=== PATIENT | female | born 1955 | race Caucasian/White ===

== ENCOUNTER 2020-05-11 18:57 | Emergency (ER) | payer OTHER ==
[~2020-05-11] VITALS: Ht 167.6 cm; Wt 80.8 kg
[2020-05-11 19:20] VITALS: BP 172/69
--- NOTE | 2020-05-11 19:22 | PHYS DOC ---
Past History Past Medical History: Arthritis Smoking: Cigarettes General Adult EDM: Chief Complaint: KNEE INJURY HPI: HPI: ".. I think I hurt my Rt. knee at work about 2 or 3 weeks. ago.. It is still giving me a lot of pain..;I seen the [facility] rachael doctor.. and he said I needed a US... Maybe .. I got a blood clott or something.. I work at at [employer].." Patient is a 64 year old female who presents with above hx and complaints of Rt knee injury . Patient feels she injured her right knee 2 to 3 weeks ago while working at [employer]. Patient has followed with the [facility] doctor who felt that she needed a ultrasound to evaluate for DVT. Patient does smoke. Patient has no previous history of DVT or pulmonary embolism or coagulopathy. There is no first-degree family members that have coagulopathy. No recent travel outside [facility]. Patient is in contact with sick patients at [employer]. Patient follows with Dr. Lopez as a primary physician. Patient does have a history of arthritic changes. Review of Systems: Review of Systems: Constitutional: Denies fever or chills Eyes: Denies change in visual acuity HENT: Denies nasal congestion or sore throat Respiratory: Denies cough or shortness of breath Cardiovascular: Denies chest pain or edema GI: Denies abdominal pain, nausea, vomiting, bloody stools or diarrhea : Denies dysuria Musculoskeletal: Complains of right knee pain Integument: Denies rash Neurologic: Denies headache, focal weakness or sensory changes Endocrine: Denies polyuria or polydipsia Lymphatic: Denies swollen glands Psychiatric: Denies depression or anxiety Heart Score: Risk Factors: Risk Factors: DM, Current or recent (<one month) smoker, HTN, HLP, family history of CAD, obesity. Risk Scores: Score 0 - 3: 2.5% MACE over next 6 weeks - Discharge Home Score 4 - 6: 20.3% MACE over next 6 weeks - Admit for Clinical Observation Score 7 - 10: 72.7% MACE over next 6 weeks - Early Invasive Strategies Family History: Family History: Noncontributory to presentation Current Medications: Current Meds: See nursing for home meds Allergies: Allergies: No known drug allergies Physical Exam: PE: Constitutional: , no acute distress, non-toxic appearance. [] HENT: Normocephalic, atraumatic, bilateral external ears normal, oropharynx moist, no oral exudates, nose normal. [] Eyes: PERRLA, EOMI, conjunctiva normal, no discharge. [] Neck: Normal range of motion, no tenderness, supple, no stridor. [] Cardiovascular:Heart rate regular rhythm, no murmur [] Lungs & Thorax: Bilateral breath sounds equal at apex on auscultation [] Abdomen: Bowel sounds normal, soft, no tenderness, no masses, no pulsatile masses. Scar Skin: Warm, dry, no erythema, no rash. [] Back: No tenderness, no CVA tenderness. [] Extremities: Right knee tenderness, some crepitation with range of motion right knee, can do straight leg lift. Anterior posterior ligaments grossly stable. Some collateral ligament tenderness. Patient does have mild popliteal tenderness on the right. No cyanosis, no clubbing, ROM intact, no edema. [] There is no cording appreciated. Neurologic: Alert and oriented X 3, normal motor function, normal sensory functi on, no focal deficits noted. [] Psychologic: Affect anxious, judgement normal, mood normal. [] EKG: EKG: [] Radiology/Procedures: Radiology/Procedures: [][place] [id number] IMAGING REPORT Signed PATIENT: GREGG JIMENEZ ACCOUNT: [id number] : 1955 LOCATION: ER AGE: 64 SEX: F EXAM STATUS: REG ER ORD. PHYSICIAN: RUSTY BOONE MD REASON: injury, CHRONIC MOTION, PAIN WORSE X A FEW DAYS PROCEDURE: KNEE RIGHT 4V Study: CR KNEE RIGHT 4V Indication: Worsening pain. Comparison: None. Findings: No acute fracture. Alignment is anatomic. Tricompartmental osteoarthrosis with a predilection for the medial compartment where there is mild joint space narrowing. Scattered small osteophytes. Probable small effusion seen at the suprapatellar recess. Impression: 1. No acute osseous abnormality. 2. Relatively mild arthrosis with a predilection for the medial femorotibial compartment. 3. Suspected small knee joint effusion. Electronically signed by: SHAYLA MIR MD (05/11/2020 8:51 PM) [id number] DICTATED AND SIGNED BY: SHAYLA MIR MD DATE: 05/11/202050 CC: RUSTY BOONE MD; AUTUMN LOPEZ MD ~ Course & Med Decision Making: Course & Med Decision Making Pertinent Labs and Imaging studies reviewed. (See chart for details) Patient use Meño wrap. Take Tylenol and ibuprofen for pain. Follow-up workman comp. Consider follow-up with primary care. Consider follow-up orthopedics if persistent pain. May take Vicoprofen up to 4 times a day for marked pain. Patient encouraged to reduce or stop smoking. With a negative d-dimer patient relatively low risk for significant DVT. Exam is more consistent with popliteal fossa bursitis and degenerative arthritis. Impression: 1. Right knee injury/pain 2. Degenerative joint changes 3. Right popliteal bursa/bursitis 4. Tobacco use [] Dragon Disclaimer: Dragon Disclaimer: This electronic medical record was generated, in whole or in part, using a voice recognition dictation system. Departure Departure: Disposition: 01 HOME/RESIDENCE PRIOR TO ADM Condition: STABLE Referrals: AUTUMN LOPEZ MD (PCP) Scripts Hydrocodone/Ibuprofen (HYDROCODONE-IBUPROFEN 7.5-200 ) 1 Each Tablet 1 TAB PO PRN Q6HRS PRN for PAIN, #30 TAB 0 Refills Prov: RUSTY BOONE MD 05/11/20 Justification of Admission: Justification of Admission: Justification of Admission Dx: N/A Dragon Disclaimer This chart was dictated in whole or in part using Voice Recognition software in a busy, high-work load, and often noisy Emergency Department environment. It may contain unintended and wholly unrecognized errors or omissions. RUSTY BOONE MD May 11, 2020 19:22
[2020-05-11 20:51] LABS: BASO # 0.1 x10^3/uL (0.0-0.2); BASO % 1 % (0-3); EOS # 0.2 x10^3/uL (0.0-0.7); EOS % 3 % (0-3); HEMATOCRIT 44.7 % (36.0-47.0); HEMOGLOBIN 14.9 g/dL (12.0-15.5); LYMPH # 2.4 x10^3/uL (1.0-4.8); LYMPH % 43 % (24-48); MEAN CORPUSCULAR HEMOGLOBIN 31 pg (25-35); MEAN CORPUSCULAR HGB CONC 33 g/dL (31-37); MEAN CORPUSCULAR VOLUME 91 fL (79-100); MONO # 0.6 x10^3/uL (0.0-1.1); MONO % 10 % (0-9); NEUT # 2.4 x10^3uL (1.8-7.7); NEUT % 43 % (31-73); PLATELET COUNT 128 x10^3/uL (140-400); RED BLOOD COUNT 4.91 x10^6/uL (3.50-5.40); RED CELL DISTRIBUTION WIDTH 13.2 % (11.5-14.5); WHITE BLOOD COUNT 5.7 x10^3/uL (4.0-11.0)
[2020-05-11 20:54] LABS: CALCIUM 9.2 mg/dL (8.5-10.1); CREATININE 0.8 mg/dL (0.6-1.0); GFR 72.4; POTASSIUM 3.8 mmol/L (3.5-5.1)
--- NOTE | 2020-05-11 20:54 | RAD ---
Study: CR KNEE RIGHT 4V Indication: Worsening pain. Comparison: None. Findings: No acute fracture. Alignment is anatomic. Tricompartmental osteoarthrosis with a predilection for the medial compartment where there is mild joint space narrowing. Scattered small osteophytes. Probable small effusion seen at the suprapatellar recess. Impression: 1. No acute osseous abnormality. 2. Relatively mild arthrosis with a predilection for the medial femorotibial compartment. 3. Suspected small knee joint effusion. Electronically signed by: SHAYLA MIR MD (05/11/2020 8:51 PM) [id number]
[2020-05-11] MEDS ORDERED: HYDR-1179 PO (21:27)
== END 2020-05-11 21:35 | disposition home or self-care (01) ==
LOC: ER 18:57
DX: M25.561 Pain in right knee (principal); M23.8X1 Other internal derangements of right knee; M70.51 Other bursitis of knee, right knee; M19.90 Unspecified osteoarthritis, unspecified site; F17.210 Nicotine dependence, cigarettes, uncomplicated; Y93.89 Activity, other specified
CPT/HCPCS: 36415; 73564; 80048; 85025; 85379; 85610; 85730; 99284